=== PATIENT | male | born 1945 | race Caucasian/White ===

== ENCOUNTER 2018-02-12 09:00 | Inpatient (IN) | payer MEDICARE, OTHER ==
[~2018-02-12] VITALS: Ht 177.8 cm; Wt 92.4 kg
[~2018-02-12 09:00] MED LIST: AMLO5TAB2 PO; ATOR20TA15 PO; ECASA81 PO; HYDR-3535 PO; NITR0.4S SL; OXYT3.9D; PANT40TA3 PO; TELM1TAB2 PO; TOVI4TAB PO
[2018-03-12] MEDS ORDERED: CHLORHEXIDINE GLUCONATE 4% SOLN 120 ML BTL TOPICAL SCH (05:45)
[2018-03-12] MEDS ORDERED: FAMOTIDINE 20 MG/2 ML VIAL IV PUSH ONE (05:45)
[2018-03-12] MEDS ORDERED: CELECOXIB 200 MG CAP PO ONE (05:45)
[2018-03-12] MEDS ORDERED: ONDANSETRON HCL 4 MG/2 ML VIAL IV PUSH ONE (05:45)
[2018-03-12] MEDS ORDERED: ACETAMINOPHEN 1000 MG/100 ML 100 ML IV ONE (05:45)
[2018-03-12] MEDS ORDERED: GABAPENTIN 300 MG CAP PO ONE (05:45)
[2018-03-12] MEDS ORDERED: VANCOMYCIN 1 GM/200 ML INJ 200 ML IV SCH (05:45)
[2018-03-12] MEDS ORDERED: ONDANSETRON ODT 4 MG TAB ONE (05:57)
[2018-03-12] MEDS ORDERED: MIRA50TA PO (06:01)
[2018-03-12] MEDS ORDERED: FERR325T18 PO (06:01)
[2018-03-12] MEDS ORDERED: TRIA37.53 PO (06:01)
[2018-03-12] MEDS ORDERED: MILKSUS PO (06:01)
[2018-03-12] MEDS ORDERED: GENTAMICIN SULFATE 80 MG/2 ML VIAL ONE (06:06)
[2018-03-12] MEDS ORDERED: ceFAZolin INJ 1,000 MG VIAL ONE (06:39)
[2018-03-12] MEDS: ACETAMINOPHEN 1000 MG/100 ML 100 ML IV SCH ×2 (06:42→20:34)
[2018-03-12] MEDS ORDERED: ceFAZolin INJ 1,000 MG VIAL IV SCH (06:45)
[2018-03-12] MEDS ORDERED: BUPIVACAINE-EPI PF 0.25% INJ 20 ML, BUPIVACAINE LIPOSO PF 1.3% INJ 20 ML in SODIUM CHLO... P-ARTICULR SCH (07:00)
[2018-03-12] MEDS ORDERED: SODIUM CHLORIDE 0.9% IV SCH (07:00)
[2018-03-12] MEDS ORDERED: TRANEXAMIC ACID IV SCH (07:00)
[2018-03-12] MEDS ORDERED: DEXAMETHASONE SOD PHOS 20 MG/5 ML VIAL IV PUSH ONE (07:00)
[2018-03-12] MEDS ORDERED: VANCOMYCIN HCL 1000 MG VIAL ONE (08:21)
--- NOTE | 2018-03-12 08:38 | PD.OP ---
cc: Michael Lam MD Operative Report Date of Surgery: Mar 12, 2018 Preoperative Diagnosis: Severe left hip osteoarthritis with avascular necrosis Postoperative Diagnosis: Procedure: Left total hip arthroplasty by anterior approach Anesthesia: General Surgeon: Michael Lam Information Assoc(s): Pato Perkins PA-C The surgical procedure was assisted by my physician environmental assistant. My P.A. presence was necessary throughout this case for the manipulation and positioning of the surgical extremity. My P.A. was assisting me throughout the duration of this procedure. The skill set of a physician environmental assistant was medically necessary to complete this procedure. During the surgical case the surgical garment assembly supervisor was working at the back table and the physician environmental assistant was directly assisting me. Operation and Findings: PLAN OF ACTIVITY Weight bear as tolerated. IMPLANTS USED DePuy Corail size [14] collared stem with a size [54] [place] Gription cup, [54 /36] Altrx poly liner, and a +5 metal head. DETAILS OF PROCEDURE: This patient has a long history of hip pain. Patient was found to have severe osteoarthritis. The patient had radiographic evidence of joint space narrowing with [id number] arthritis and osteophytes around the acetabulum as well as the femoral head. There was also some cystic changes. The patient failed conservative treatment with pain medications, anti-inflammatories, physical therapy, assistive devices including a cane, as well as therapeutic injection of the hip. Patient's hip arthritis was limiting his ability to ambulate and perform activities of daily living. The patient wished to proceed with surgery and informed consent was obtained. Operative site was marked. I discussed both posterior approach and anterior approach with the patient and decision was made for anterior approach. Patient was brought to OR and placed on OR table. IV sedation and general anesthesia was administered by anesthesiologist. Patient positioned on a Mary Jo table and was given IV antibiotics. Time-out procedure was performed. The hip and thigh were prepped with alcohol followed by Hibiclens. The thigh was draped in the usual sterile fashion. Clean Air Suite was used for this procedure. The procedure began with a 5-inch incision over the anterolateral thigh. Subcutaneous tissue was dissected with Bovie. The fascia over the tensa fasciae latae was incised. Care was taken to avoid injury to the lateral femoral cutaneous nerve. The tensor muscle was retracted laterally. Sartorius was retracted medially. Retractors were now placed. The reflected head of the rectus is now elevated. A capsulotomy was performed over the anterior head capsule. Sutures were placed to help retract the capsule. At this point the femoral head and neck were identified. With soft tissue protected, oscillating saw was used to make a cut through the femoral neck, the femoral head was now removed. At this point attention was turned to preparation of the acetabulum. The labrum was excised. The acetabulum was sequentially reamed up to size [54]. A [place] cup was now placed. Fluoroscopy was used to aid in identification of appropriate version. Cup was fully impacted and found to have excellent fit. Hole eliminator was now placed. The liner was now impacted into the cup. At this point the hip was externally rotated. A hook was placed around the proximal femur. The capsule was released off the lateral and medial femur. The hip was now extended and adducted. Retractors were placed around the proximal femur to allow for exposure. A box osteotome was used to remove the lateral cortex of the femoral neck. A broach was used to help lateralize the prosthesis. Canal finder was used to create a path down the canal. Next, the canal was sequentially broached up to size [14]. This was found to be an excellent fit. Calcar planer was placed. A standard head was placed, and the hip was reduced. The hip was found to have excellent stability with good range of motion. The leg lengths were measured under fluoroscopy and found to be equal compared to preoperatively. Trial broach was removed. The Corail stem was opened. Stem was fully impacted into the proximal femur in appropriate version. The femoral head was placed. The hip was again reduced. Fluoroscopy confirmed excellent alignment of prosthesis. The wound was thoroughly irrigated and capsule was closed with #1 Vicryl. The fascia over the tensor fasciae muscle was closed with #1 Vicryl, subcutaneous tissue was closed with 3-0 Vicryl and the skin was closed with yoli and Dermabond skin closure. The capsule layers, muscle, and subcutaneous tissue were injected with a mixture of saline and bupivicaine. Dressings were applied. The patient was transferred to Recovery Room in stable condition. Michael Lam MD Mar 12, 2018 08:38
[2018-03-12] MEDS ORDERED: ACETAMINOPHEN/HYDROcodone 325 MG/5 MG TAB PO PRN (08:45)
[2018-03-12] MEDS ORDERED: KETOROLAC TROMETHAMINE 30 MG/ML (IVP) VIAL IV PUSH SCH (08:45)
[2018-03-12] MEDS ORDERED: VANCOMYCIN INJ 1,000 MG in SODIUM CHLOR 0.9% 250 ML INJ 250 ML IV SCH (08:45)
[2018-03-12] MEDS ORDERED: NALOXONE HCL 0.4 MG/ML AMP IV PUSH PRN (08:45)
[2018-03-12] MEDS ORDERED: ONDANSETRON ODT 4 MG TAB PO PRN (08:45)
[2018-03-12] MEDS ORDERED: ACETAMINOPHEN/HYDROcodone 325 MG/7.5 MG TAB PO PRN (08:45)
[2018-03-12] MEDS ORDERED: Post-op Orders (for Pharmacy) XX ONE (08:45)
[2018-03-12] MEDS ORDERED: MORPHINE SULFATE 4 MG/ML INJ IV PUSH PRN (08:45)
[2018-03-12] MEDS ORDERED: DO NOT ADM ANY ANTICOAGULANT DRUGS PRN (08:55)
[2018-03-12] MEDS: CELECOXIB 200 MG CAP PO SCH ×2 (09:00→20:32)
[2018-03-12] MEDS ORDERED: *morphine SULFATE 4 MG/ML PERIprocedure ONLY ONE (09:15)
[2018-03-12] MEDS: LACTATED RINGER'S 1000 ML INJ 1,000 ML IV SCH ×2 (09:15→21:04)
[2018-03-12] MEDS: ASPIRIN 81 MG CHEW TAB CHEW SCH ×2 (09:40→20:32)
[2018-03-12] MEDS ORDERED: TRANEXAMIC ACID INJ 1,000 MG in SODIUM CHLORIDE 0.9% INJ 100 ML IV SCH (10:00)
--- NOTE | 2018-03-12 10:31 | RADRPT ---
EXAM DATE: 03/12/2018 10:22 AM EDT AGE/SEX: 73 years / Male INDICATIONS: Post op left total hip replacement. CLINICAL DATA: This is the patient's initial encounter. Patient reports that signs and symptoms have been present for 1 day and indicates a pain score of 3/10. MEDICAL/SURGICAL HISTORY: None. . Right total hip replacement. COMPARISON: No prior [facility] exams available for comparison. FINDINGS: The patient's had bilateral total hip arthroplasties. No complications. No evidence of fra cture. Alignment is excellent No radiopaque foreign bodies seen. CONCLUSION: Bilateral total hip arthroplasties. No evidence of fracture . Electronically signed by: Celso Colunga MD 03/12/2018 10:30 AM EDT
[2018-03-12] MEDS ORDERED: GLYCOPYRROLATE 1 MG/5 ML SYRINGE IV PUSH ONE (12:00)
[2018-03-12] MEDS ORDERED: NEOSTIGMINE 5 MG/5 ML SYRINGE IV PUSH ONE (12:00)
[2018-03-12] MEDS ORDERED: ROCURONIUM INJ 50 MG/5 ML SYRINGE IV PUSH ONE (12:00)
[2018-03-12] MEDS ORDERED: DEXAMETHASONE SOD PHOS 4 MG/ML VIAL IV ONE (12:00)
[2018-03-12] MEDS ORDERED: PHENYLEPH/NS 1000 MCG/10 ML SYR IV ONE (12:00)
[2018-03-12] MEDS ORDERED: LACTATED RINGER'S 1000 ML INJ 1,000 ML IV ONE (12:00)
[2018-03-12] MEDS ORDERED: LIDOCAINE HCL 1% PF 5 ML SYRINGE OTHER ONE (12:00)
[2018-03-12] MEDS ORDERED: PROPOFOL 200 MG/20 ML AMP IV ONE (12:00)
[2018-03-12] MEDS: ceFAZolin 2 GM PREMIX 50 ML IV SCH ×2 (12:45→18:37)
--- NOTE | 2018-03-12 13:39 | HHI.FF ---
Face to Face Verification Diagnosis: (1) S/P total hip arthroplasty Physical Therapy Gait training Hip: Total hip, Protocol: Left, Progress to weight bearing Left LE Weight Bearing: WB as tolerated Nursing Dressing Changes: Do not change dressing (maintain optifoam dressing x 6 days) , Daily dressing change (begin daily dressing changes on POD 7 with primapore dressing. maintain surgical tape that is on incision) I have seen patient Eliu Bello on 03/12/18. My clinical findings support the need for the requested home health care services because: Ltd mobility - disease progression I certify that my clinical findings support that this patient is homebound because: Post-op weakness Pato Perkins/Ammunition Supervisor PA Mar 12, 2018 13:39
[2018-03-12] MEDS: ACETAMINOPHEN/HYDROcodone 325 MG/10 MG TAB PO PRN ×2 (15:17→23:22)
--- NOTE | 2018-03-12 15:58 | RADRPT ---
EXAM DATE: 03/12/2018 1:38 PM EDT AGE/SEX: 73 years / Male INDICATIONS: Left total hip arthroplasty. CLINICAL DATA: This is the patient's initial encounter. Patient reports that signs and symptoms have been present for 1 day and indicates a pain score of Nonresponsive. MEDICAL/SURGICAL HISTORY: Non-responsive. Non-responsive. COMPARISON: No prior [facility] exams available for comparison. FINDINGS: Status post total hip arthroplasty in excellent position CONCLUSION: Total hip arthroplasty in good position Electronically signed by: Celso Colunga MD 03/12/2018 3:57 PM EDT
[2018-03-12 16:00] VITALS: BP 147/68; PULSE 85; RESP 16; TEMP 98.2; O2SAT 95
[2018-03-12 20:00] VITALS: BP 140/73; PULSE 74; RESP 18; TEMP 98.2; O2SAT 95
[2018-03-12] MEDS: MAGNESIUM HYDROXIDE SUSP 30 ML CUP PO SCH (20:31)
[2018-03-12] MEDS: VANCOMYCIN 1 GM/200 ML PREMIX ON-CALL IV SCH (20:33)
[2018-03-13 00:01] VITALS: BP 117/62; PULSE 70; RESP 18; TEMP 98.6; O2SAT 95
[2018-03-13] MEDS: ceFAZolin 2 GM PREMIX 50 ML IV SCH (01:10)
[2018-03-13 04:00] VITALS: BP 140/68; PULSE 66; RESP 17; TEMP 98.8; O2SAT 93
[2018-03-13] MEDS ORDERED: ECASA81 PO (06:28)
[2018-03-13] MEDS ORDERED: HYDR-3583 PO (06:28)
--- NOTE | 2018-03-13 06:31 | PD.ORT.PN ---
Subjective Subjective Remarks POD 1 s/p Left Anterior LAURA doing well. out of bed with therapy yesterday. Objective Vitals Vital Signs Date Time Temp Pulse Resp B/P (MAP) Pulse Ox O2 Delivery O2 Flow Rate FiO2 03/13/18 04:00 98.8 66 17 140/68 (92) 93 03/13/18 00:01 98.6 70 18 117/62 (80) 95 03/12/18 20:00 98.2 74 18 140/73 (95) 95 03/12/18 16:17 18 03/12/18 16:00 98.2 85 16 147/68 (94) 95 03/12/18 12:00 68 16 149/87 (107) 98 Nasal Cannula 2 03/12/18 11:00 62 16 156/82 (106) 97 Nasal Cannula 2 03/12/18 10:30 62 16 143/69 (93) 97 Nasal Cannula 2 03/12/18 10:00 62 16 157/78 (104) 95 Nasal Cannula 2 03/12/18 09:45 66 16 164/78 (106) 95 Nasal Cannula 2 03/12/18 09:30 66 16 170/74 (106) 95 Nasal Cannula 2 03/12/18 09:15 68 16 175/78 (110) 95 Nasal Cannula 2 03/12/18 09:00 98.7 84 16 139/84 (102) 94 Nasal Cannula 2 I/O 03/12/18 03/12/18 03/12/18 03/13/18 03/13/18 03/13/18 07:00 15:00 23:00 07:00 15:00 23:00 Intake Total 1200 ml Output Total 250 ml Balance 950 ml Intake IV Total 100 ml Other 1100 ml Output Urine Total 100 ml Estimated Blood Loss 150 ml # Voids 1 Imaging Last 24 hours Impressions Hip and Pelvis X-Ray 03/12/18 0834 Signed Impressions: CONCLUSION: Bilateral total hip arthroplasties. No evidence of fracture . Objective Remarks LLE: dressings clean and dry. intact. NVI Assessment & Plan Assessment and Plan 1) Left Anterior LAURA - POD 1 -WBAt -maintain dressing x 6 days and begin daily dressing changes POD 7 with primapore -DVT prophylaxis -plan for home with [facility] tomorrow -work with PT today adn tomorrow -f/u Siddharth 2 weeks Pato Perkins PA/Farm Instructor PA Mar 13, 2018 06:31
[2018-03-13 06:51] LABS: HEMATOCRIT 26.2 % (39.0-51.0)
[2018-03-13 08:00] VITALS: BP 153/72; PULSE 77; RESP 18; TEMP 98.3; O2SAT 96
[2018-03-13] MEDS: VANCOMYCIN 1 GM/200 ML PREMIX ON-CALL IV SCH (09:00)
[2018-03-13] MEDS: ACETAMINOPHEN 1000 MG/100 ML 100 ML IV SCH ×2 (09:33→19:59)
[2018-03-13] MEDS: ASPIRIN 81 MG CHEW TAB CHEW SCH ×2 (09:34→19:58)
[2018-03-13] MEDS: MAGNESIUM HYDROXIDE SUSP 30 ML CUP PO SCH ×2 (09:34→19:58)
[2018-03-13] MEDS: LACTATED RINGER'S 1000 ML INJ 1,000 ML IV SCH ×2 (09:34→20:06)
[2018-03-13] MEDS: ACETAMINOPHEN/HYDROcodone 325 MG/10 MG TAB PO PRN ×2 (09:34→19:59)
[2018-03-13] MEDS: CELECOXIB 200 MG CAP PO SCH ×2 (09:34→19:58)
[2018-03-13 12:00] VITALS: BP 171/72; PULSE 70; RESP 16; TEMP 98.1; O2SAT 96
[2018-03-13] MEDS ORDERED: VANCOMYCIN 1 GM/200 ML PREMIX ON-CALL IV ONE (12:15)
[2018-03-13 16:00] VITALS: BP 134/65; PULSE 69; RESP 16; TEMP 97.8; O2SAT 95
[2018-03-13] MEDS: DOCUSATE SODIUM 100 MG CAP PO SCH (19:58)
[2018-03-13 20:00] VITALS: BP 150/70; PULSE 72; RESP 19; TEMP 98.3; O2SAT 95
[2018-03-14 00:01] VITALS: BP 134/66; PULSE 68; RESP 18; TEMP 98.6; O2SAT 95
[2018-03-14 04:00] VITALS: BP 151/71; PULSE 65; RESP 17; TEMP 98.1; O2SAT 93
--- NOTE | 2018-03-14 06:37 | PD.ORT.PN ---
Subjective Subjective Remarks POD 2 s/p Left Anterior LAURA doing well. out of bed with therapy yesterday. progressing Objective Vitals Vital Signs Date Time Temp Pulse Resp B/P (MAP) Pulse Ox O2 Delivery O2 Flow Rate FiO2 03/14/18 04:00 98.1 65 17 151/71 (97) 93 03/14/18 00:01 98.6 68 18 134/66 (88) 95 03/13/18 20:00 98.3 72 19 150/70 (96) 95 03/13/18 16:00 97.8 69 16 134/65 (88) 95 03/13/18 12:00 98.1 70 16 171/72 (105) 96 03/13/18 10:34 18 03/13/18 10:03 18 03/13/18 08:00 98.3 77 18 153/72 (99) 96 I/O 03/13/18 03/13/18 03/13/18 03/14/18 03/14/18 03/14/18 07:00 15:00 23:00 07:00 15:00 23:00 Intake Total 460 ml 720 ml 100 ml Balance 460 ml 720 ml 100 ml Intake Oral 460 ml 720 ml IV Total 100 ml # Voids 3 3 3 # Bowel Movements 1 Result Diagram: 03/13/18 0603 Imaging Last 24 hours Impressions Hip and Pelvis X-Ray 03/12/18 0834 Signed Impressions: CONCLUSION: Bilateral total hip arthroplasties. No evidence of fracture . Objective Remarks LLE: dressings clean and dry. intact. NVI Assessment & Plan Assessment and Plan 1) Left Anterior LAURA - POD 2 -WBAt -maintain dressing x 6 days and begin daily dressing changes POD 7 with primapore -DVT prophylaxis -plan for home with [facility] today -work with PT today -f/u Siddharth 2 weeks Pato Perkins/First Nalini GONZALEZ Mar 14, 2018 06:37
--- NOTE | 2018-03-14 06:40 | HHI.DS ---
Discharge Summary Admission Date Mar 12, 2018 at 05:10 Discharge Date: Mar 14, 2018 Admitting Diagnosis Left Hip OA Diagnosis: (1) S/P total hip arthroplasty Diagnosis: Principal ICD Codes: Z96.649 - Presence of unspecified artificial hip joint Procedures Left anterior total hip arthroplasty CBC/BMP: 03/13/18 0603 Significant Findings Laboratory Tests Test 03/13/18 06:03 Hemoglobin 9.0 GM/DL (13.0-17.0) Hematocrit 26.2 % (39.0-51.0) PE at Discharge LLE: dressings clean and dry. intact. NVI Hospital Course Patient is diagnosed with left hip osteo-arthritis was been dealing with it for some time now. He is failed conservative treatment which included anti- inflammatory therapy, activity modification, steroid injections. Decision was made to move forward with a left anterior total hip arthroplasty. He underwent procedure on 03/12/2018 and tolerated the procedure well. He was admitted to [facility]. He is out of bed on postop day 0 and ambulating with a walker. By postop day 2, he was hemodynamically stable, pain controlled, ambulating well with therapy, and fit for discharge home with home health care. He will maintain his dressing for 6 days and begin daily dressing changes with a Primapore dressing on postop day 7. He will remain fully weightbearing. He will keep his incision clean and dry. He will follow-up with Dr. Messina or his PA in 2 weeks Pt Condition on Discharge: Good Discharge Disposition: Disch w/ Home Health Serv Discharge Instructions Diet Instructions: As Tolerated, No Restrictions Activities You Can Perform: Weight Bearing as Rachel Follow up Referrals: Orthopedics - 2 Weeks @ [facility] with Michael Messina MD New Medications: Hydrocodone-Acetaminophen (Hydrocodone-Acetaminophen) 10-325 mg Tab 1 TAB PO Q4H PRN for PAIN, #60 TAB 0 Refills Changed Medications: Aspirin DR (Aspirin DR) 81 Mg Tabdr 81 MG PO BID for blood clot prevention for 30 Days, #60 TAB 0 Refills (Changed from: DAILY) Continued Medications: Amlodipine (Amlodipine) 5 Mg Tab 5 MG PO DAILY for Blood Pressure Management, #30 TAB 0 Refills Atorvastatin (Atorvastatin) 20 Mg Tab 20 MG PO HS for Cholesterol Management, #30 TAB 0 Refills Ferrous Sulfate (Ferrous Sulfate) 325 Mg (65 Mg Iron) Tablet 325 MG PO DAILY for Nutritional Supplement, TAB 0 Refills Magnesium Hydroxide Liq (Milk of Magnesia Liq) 400 Mg/5 Ml Susp 30 ML PO DAILY PRN for INDIGESTION OR UPSET STOMACH, BOTTLE 0 Refills Mirabegron (Myrbetriq) 50 Mg Tab 50 MG PO DAILY for Urinary Symptom Managemen, #30 TAB 0 Refills Nitroglycerin SL (Nitrostat SL) 0.4 Mg Subl 0.4 MG SL DIRECTED PRN for CHEST PAIN, #100 TAB.SL 0 Refills 1 tablet under the tongue as needed for chest pain. Repeat every 5 minutes for a total of 3 DOSES or call 911 if NO relief. Pantoprazole (Pantoprazole) 40 Mg Tab 40 MG PO DAILY for Reflux, #30 TAB 0 Refills Telmisartan (Telmisartan) 80 Mg Tab 80 MG PO DAILY for Blood Pressure Management, #30 TAB 0 Refills Triamterene-Hydrochlorothiazide (Triamterene-Hydrochlorothiazide) 37.5-25 Mg Cap 2 CAP PO DAILY, CAP 0 Refills Pato Perkins/Training Representative CARLOS Mar 14, 2018 06:40
[2018-03-14 07:50] VITALS: BP 135/63; PULSE 67; RESP 20; TEMP 98; O2SAT 94
[2018-03-14] MEDS: DOCUSATE SODIUM 100 MG CAP PO SCH (10:11)
[2018-03-14] MEDS: ACETAMINOPHEN/HYDROcodone 325 MG/10 MG TAB PO PRN (10:12)
[2018-03-14] MEDS: ASPIRIN 81 MG CHEW TAB CHEW SCH (10:12)
[2018-03-14] MEDS: MAGNESIUM HYDROXIDE SUSP 30 ML CUP PO SCH (10:12)
[2018-03-14] MEDS: CELECOXIB 200 MG CAP PO SCH (10:12)
[2018-03-14] MEDS: LACTATED RINGER'S 1000 ML INJ 1,000 ML IV SCH (10:34)
[2018-03-14 11:50] VITALS: BP 120/55; PULSE 75; RESP 20; TEMP 97.8; O2SAT 100
== END 2018-03-14 11:51 | disposition home health service (06) | DRG 470 ==
LOC: HSDI 03-12 05:10 → N06A 03-12 13:03
PROVIDERS: ADMIT Orthopaedic Surgery Orthopaedic Trauma; ATTEND Orthopaedic Surgery Orthopaedic Trauma
PROC: 0SRB02A Replacement of Left Hip Joint with Metal on Polyethylene Synthetic Substitute, Uncemented, Open Approach (ICD-10-PCS; principal; 2018-03-12 06:44)
DX: M16.12 Unilateral primary osteoarthritis, left hip (principal); M87.9 Osteonecrosis, unspecified; I10 Essential (primary) hypertension; Z96.641 Presence of right artificial hip joint; Z87.891 Personal history of nicotine dependence; Z79.82 Long term (current) use of aspirin
CPT/HCPCS: 73501; 73502; 76000; 85014; 85018; 86850; 86900; 86901; 88304; 88305; 88311; C1776; C9290; J0131; J0690; J1100; J1580; J1885; J2270; J2370; J2405; J2710; J3010; J3370; J7120